=== PATIENT | male | born 2000 | race Hispanic/Latino ===

== ENCOUNTER → 2024-08-07 | Day surgery (SDC) | payer BC ==
[~2024-08-07] MED LIST: ACETAMINOPHEN 1000 MG/100 ML 100 ML IV ONE; CREATINE100 GM PO; DEXAMETHASONE SOD PHOS INJ 4 MG/ML SDV ONE; EYE LUBRICANT OPTH OINT 3.5GM TUBE OP ONE; FENTANYL CITRATE/PF 100MCG/2 ML INJ ONE; LIDOCAINE HCL 2% LOCAL INJ 5 ML SDV VIAL INJ ONE; MAGNESIUM PO; MIDAZOLAM HCL 2 MG/2 ML VIAL ONE; ONDANSETRON HCL 4 MG ORAL DISINTEGRATING TAB ONE; ONDANSETRON HCL INJ 2MG/ML 2ML 2 MG/ML VIAL ONE; PROPOFOL IV EMULSION 10 MG/ML 20 ML VIAL ONE; SEVOFLURANE INHAL SOLN 250 ML PEN BTL ONE; SUCCINYLCHOLINE CHLORIDE 20 MG/ML 10ML VIAL ONE; ZINC PO
[2024-08-07] MEDS: LACTATED RINGER'S 1,000 ML ONE (10:46)
[2024-08-07] MEDS: HYDROCODONE/APAP 7.5MG-325MG 1 EA TAB ONE (14:20)
[2024-08-07] MEDS: METOCLOPRAMIDE HCL 10 MG/2ML VIAL ONE (14:45)
[2024-08-07] MEDS: ONDANSETRON HCL INJ 2MG/ML 2ML 2 MG/ML VIAL ONE (14:45)
[2024-08-07 15:30] VITALS: BP 130/76; PULSE 60; RESP 18; O2SAT 99
[2024-08-07] MEDS: ONDANSETRON HCL 4 MG ORAL DISINTEGRATING TAB SL ONE (15:45)
== END | disposition home or self-care (01) ==
LOC: OR 09:12 → EDBD 11:00
PROVIDERS: ATTEND Surgery
DX: K40.90 Unilateral inguinal hernia, without obstruction or gangrene, not specified as recurrent (principal)
CPT/HCPCS: 49505; C1781; J0131; J0330; J1100; J2003; J2250; J2405; J2704; J2765; J3010; J7121; Q0162